=== PATIENT | female | born 1945 | race Caucasian/White ===

== ENCOUNTER 2017-03-21 07:26 | Day surgery (SDC) | payer MEDICARE, BC ==
[~2017-03-21] VITALS: Ht 165.1 cm; Wt 46.8 kg
[2017-03-21] VITALS (18 sets, daily range): BP systolic 110–158; BP diastolic 68–96
[2017-03-21] MEDS ORDERED: TEST5GEL2 TOP (08:00)
[2017-03-21] MEDS ORDERED: PROG100C6 PO (08:00)
[2017-03-21] MEDS ORDERED: ESTR50GE TD (08:00)
[2017-03-21] MEDS ORDERED: normal saline 1000ml 1,000 ML IV PRN (08:45)
[2017-03-21] MEDS ORDERED: ondansetron/PF 4mg/2ml inj IV PRN (08:55)
[2017-03-21 09:12] LABS: BASOPHILS % (AUTO) 0.8 % (0-1); EOSINOPHILS # (AUTO) 0.1 X10'3 (0-0.9); EOSINOPHILS % (AUTO) 1.5 % (0-6); HEMATOCRIT 44.9 % (35.0-45.0); HEMOGLOBIN 14.6 g/dl (12.0-16.0); LYMPHOCYTES # (AUTO) 1.6 X10'3 (1.1-4.8); LYMPHOCYTES % (AUTO) 26.8 % (21-51); MEAN CORPUSCULAR HEMOGLOBIN 28.9 PG (27.0-31.0); MEAN CORPUSCULAR HGB CONC 32.5 % (33.0-36.5); MEAN CORPUSCULAR VOLUME 88.8 FL (78-98); MEAN PLATELET VOLUME 8.3 FL (7.4-10.4); MONOCYTES # (AUTO) 0.5 X10'3 (0-0.9); MONOCYTES % (AUTO) 8.3 % (2-12); NEUTROPHILS # (AUTO) 3.7 X10'3 (1.8-7.7); NEUTROPHILS % (AUTO) 62.6 % (42-75); PLATELET COUNT 253 X10'3 (140-440); RED BLOOD COUNT 5.05 X10'6 (4.20-5.60); RED CELL DISTRIBUTION WIDTH 12.7 % (11.5-14.5); WHITE BLOOD COUNT 5.9 X10'3 (4.5-11.0)
[2017-03-21] MEDS ORDERED: midazolam 2 mg/2 ml injection ONE (10:07)
[2017-03-21] MEDS ORDERED: fentaNYL/PF 50MCG/1 ML 2ML syringe ONE (10:07)
[2017-03-21] MEDS ORDERED: LIDOcaine 1%/PF (10mg/ml) 5ml vial SQ ONE (10:25)
[2017-03-21] MEDS ORDERED: midazolam 2 mg/2 ml injection IV PRN (10:25)
[2017-03-21] MEDS ORDERED: fentaNYL/PF 50MCG/1 ML 2ML syringe IV PRN (10:25)
[2017-03-21] MEDS ORDERED: sodium chloride 0.45% 1,000 ML IV SCH (11:03)
[2017-03-21] MEDS ORDERED: ibuprofen tablet 400 MG TABLET PO ONE ×2 (12:30→12:55)
[2017-03-21] MEDS ORDERED: ondansetron/PF 4mg/2ml inj IV ONE (13:10)
== END 2017-03-21 15:00 | disposition home or self-care (01) ==
LOC: SSTAY O 07:26
PROVIDERS: ATTEND Radiology Diagnostic Radiology
DX: J47.9 Bronchiectasis, uncomplicated (principal); J93.9 Pneumothorax, unspecified; K21.9 Gastro-esophageal reflux disease without esophagitis; I48.91 Unspecified atrial fibrillation; M81.0 Age-related osteoporosis without current pathological fracture; Z88.6 Allergy status to analgesic agent; Z87.891 Personal history of nicotine dependence; Z90.49 Acquired absence of other specified parts of digestive tract; Z98.890 Other specified postprocedural states; Z90.710 Acquired absence of both cervix and uterus; Z88.2 Allergy status to sulfonamides; A31.8 Other mycobacterial infections
CPT/HCPCS: 32405; 36415; 71045; 77012; 85025; 87015; 87116; 87206; A6257; J2250; J2405; J3010; J7030; 88173; 99152; 99153